=== PATIENT | male | born 1950 | race Caucasian/White ===

== ENCOUNTER → 2016-06-18 | Outpatient (CLI) | payer OTHER | END | disposition home or self-care (01) | LOC: MW.CHUR 08:15 | PROVIDERS: ATTEND Urology | DX: C61 Malignant neoplasm of prostate (principal) | CPT/HCPCS: 36415; 84153 ==

== ENCOUNTER → 2016-07-02 | Outpatient (CLI) | payer OTHER | END | disposition home or self-care (01) | LOC: MW.CHUR 13:34 | PROVIDERS: ATTEND Urology | DX: C61 Malignant neoplasm of prostate (principal); N32.89 Other specified disorders of bladder; N52.9 Male erectile dysfunction, unspecified; R97.20 Elevated prostate specific antigen [PSA] | CPT/HCPCS: 81001 ==

== ENCOUNTER 2016-11-03 07:19 | Day surgery (SDC) | payer OTHER ==
[~2016-11-03 07:19] MED LIST: Lactated Ringers 1,000 ML IV SCH; ceFAZolin 1 GM in Premix Bag 1 BAG IV ONE
--- NOTE | 2016-11-03 08:45 | PCM.PREANE ---
Preanesthetic Assessment - Anesthesia/Transfusion/Family Hx Anesthesia History: Prior Anesthesia Without Reaction Family History of Anesthesia Reaction: No Transfusion History: No Prior Transfusion(s) Additional History: Raynoud's Disease, motion sickness, s/p prostatectomy. - Review of Systems General: No Symptoms Pulmonary: No Symptoms Cardiovascular: No Symptoms Gastrointestinal: No Symptoms Neurological: No Symptoms Other: Reports: None - Physical Assessment NPO Status Date: 11/02/16 NPO Status Time: 21:00 O2 Sat by Pulse Oximetry: 96 Respiratory Rate: 16 Vital Signs: Last Vital Signs Temp 97.5 F 11/03/16 07:41 Pulse 65 11/03/16 07:41 Resp 16 11/03/16 07:41 BP 145/82 H 11/03/16 07:41 Pulse Ox 96 11/03/16 07:41 Height: 6 ft 0.83 in Weight: 188 lb 11.45 oz Mental Status: Alert & Oriented x3 Airway Class: Mallampati = 1 Dentition: Reports: Normal Dentition Thyro-Mental Finger Breadths: 3 Mouth Opening Finger Breadths: 3 ROM/Head Extension: Full Lungs: Clear to Auscultation, Normal Respiratory Effort Cardiovascular: Regular Rate, Regular Rhythm, No Murmurs - Allergies Allergies/Adverse Reactions: Allergies Allergy/AdvReac Type Severity Reaction Status Date / Time No Known Allergies Allergy Verified 10/29/16 11:28 - Blood Blood Available: No Product(s) Available: None - Anesthesia Plan Pre-Op Medication Ordered: None - Acknowledgements Anesthesia Type Planned: General Anesthesia (LMA vs OET) Pt an Appropriate Candidate for the Planned Anesthesia: Yes Alternatives and Risks of Anesthesia Discussed w Pt/Guardian: Yes Pt/Guardian Understands and Agrees with Anesthesia Plan: Yes PreAnesthesia Questionnaire HEENT History: Reports: Other (See Below) Other HEENT History: wears glasses Cardiovascular History: Reports: Other (See Below) Other Cardiovascular History: raynauds disease Gastrointestinal History: Reports: GERD Genitourinary History: Reports: Prostate Disorder Other Genitourinary History: prostate cancer Musculoskeletal History: Reports: Osteoarthritis Other Musculoskeletal History: hx tendon repair left index finger Neurological History: Reports: Other (See Below) Other Neuro History: hx of motion sickness Oncologic (Cancer) History: Reports: Prostate Dermatologic History: - Past Surgical History GI Surgical History: Reports: Hernia, Inguinal Other GI Surgeries/Procedures: hx wilian inguinal hernia repair with mesh Other Female Surgeries/Procedures: hx prostatectomy for cancer Male Surgical History: Reports: Prostatectomy Musculoskeletal Surgical History: Reports: Arthroscopic Knee - SUBSTANCE USE Smoking Status *Q: Never Smoker Tobacco Use Within Last Twelve Months: No Days Per Week of Alcohol Use: 1 Number of Drinks Per Day: 1 Total Drinks Per Week: 1 Recreational Drug Use History: No - HOME MEDS Home Medications: Home Meds Omeprazole 20 mg PO DAILY 02/27/16 [History] Sildenafil [Viagra] 100 mg PO ASDIRECTED PRN 02/27/16 [History] - CURRENT (IN HOUSE) MEDS Current Meds: Current Medications Lactated Ringer's (Ringers, Lactated) 1,000 mls @ 100 mls/hr IV ASDIRECTED [facility] Last Admin: 11/03/16 07:42 Dose: 100 mls/hr Discontinued Medications Cefazolin Sodium/Dextrose 1 gm (/ Premix) 50 mls @ 100 mls/hr IV ONCALL ONE Stop: 11/03/16 07:29
[2016-11-03] MEDS ORDERED: Lidocaine 2% 5 ML SDV ONE (08:56)
[2016-11-03] MEDS ORDERED: Propofol 200 MG/20 ML SDV ONE (08:56)
[2016-11-03] MEDS ORDERED: fentaNYL 100 MCG/2 ML SDV ONE (08:57)
[2016-11-03] MEDS ORDERED: Midazolam 1 MG/ML 2 ML SDV ONE (08:57)
[2016-11-03] MEDS ORDERED: Ondansetron 4 MG/2 ML SDV ONE ×2 (08:58→09:39)
[2016-11-03] MEDS ORDERED: Ketorolac 30 MG/ML SDV ONE (08:58)
[2016-11-03] MEDS ORDERED: ePHEDrine 50 MG/ML SDV ONE (09:31)
[2016-11-03] MEDS ORDERED: fentaNYL 100 MCG/2 ML SDV IVPUSH PRN (10:12)
--- NOTE | 2016-11-03 10:36 | PCM.POSTAN ---
POST ANESTHESIA ASSESSMENT - MENTAL STATUS Mental Status: Alert, Oriented - VITAL SIGNS Pulse Rate: 80 SaO2: 97 Resp Rate: 18 Blood Pressure: 107/70 - RESPIRATORY Respiratory Status: Respiratory Rate WNL, Airway Patent, O2 Saturation Stable - CARDIOVASCULAR CV Status: Pulse Rate WNL, Blood Pressure Stable - GASTROINTESTINAL GI Status: No Symptoms - PAIN Pain Score: 0 - POST OP HYDRATION Hydration Status: Adequate & Stable - OBSERVATIONS Free Text/Narrative:: Satisfactory post-anesthesia condition
[2016-11-03 11:12] VITALS: BP 115/65
--- NOTE | 2016-11-03 11:31 | PCM.POSTAN ---
POST ANESTHESIA ASSESSMENT - MENTAL STATUS Mental Status: Alert, Oriented - RESPIRATORY Respiratory Status: Respiratory Rate WNL, Airway Patent, O2 Saturation Stable - CARDIOVASCULAR CV Status: Pulse Rate WNL, Blood Pressure Stable - GASTROINTESTINAL GI Status: No Symptoms - POST OP HYDRATION Hydration Status: Adequate & Stable
--- NOTE | 2016-11-03 11:32 | PCM48HPAN ---
Post Anesthesia Note - EVALUATION WITHIN 48HRS OF ANESTHETIC Vital Signs in Normal Range: Yes Patient Participated in Evaluation: Yes Respiratory Function Stable: Yes Airway Patent: Yes Cardiovascular Function Stable: Yes Hydration Status Stable: Yes Pain Control Satisfactory: Yes Nausea and Vomiting Control Satisfactory: Yes Mental Status Recovered: Yes
--- NOTE | 2016-11-03 14:26 | OR ---
SURGEON: Yazmin Riojas M.D. DATE OF PROCEDURE: 11/03/2016 PREOPERATIVE DIAGNOSIS: Bladder neck contracture. POSTOPERATIVE DIAGNOSIS: Bladder neck contracture. OPERATION: Bladder neck cuts. DESCRIPTION OF OPERATION: The patient was given general anesthesia, placed in dorsal lithotomy position, prepped and draped in sterile drapes. The 22 cystoscope was introduced into the urethra without difficulty. The urinary sphincter was identified along with the verumontanum. The bladder neck is scarred down. The 26 resectoscope was then placed and a cold knife was used to cut the neck of the bladder in four quadrants. As a result of that, the neck of the bladder opened up. I was able to put the resectoscope in and there was not much in the way of resection that actually could be done without being outside the anastomosis. So, the cutting current was used to expand the bladder neck without resecting any scar tissue out. With that done, the bladder was emptied and the patient was moved to recovery room in good condition. CINTIA / DENA /[id number]
== END 2016-11-03 11:15 | disposition home or self-care (01) ==
LOC: MW.SDS 07:19
PROVIDERS: ATTEND Urology
DX: N32.0 Bladder-neck obstruction (principal); K21.9 Gastro-esophageal reflux disease without esophagitis; M19.90 Unspecified osteoarthritis, unspecified site; Z85.46 Personal history of malignant neoplasm of prostate; Z90.79 Acquired absence of other genital organ(s); Z98.890 Other specified postprocedural states; Z79.899 Other long term (current) drug therapy
CPT/HCPCS: 52276; J0690; J1885; J2250; J2405; J3010; J7120; 00912; J2704